=== PATIENT | female | born 1965 | race Caucasian/White ===

== ENCOUNTER 2017-01-10 16:29 | Emergency (ER) | payer BC ==
[2017-01-10 16:49] VITALS: BP 126/79
[2017-01-10] MEDS ORDERED: Cephalexin CAP* 500 MG PO ONE (17:15)
--- NOTE | 2017-01-10 17:23 | UC ---
Complaint Female HPI - HPI Summary HPI Summary: 51 yo female with dysuria/urgency/frequency x 2 hours no f/c no back pain no n/v/d no vag d/c or itch - History Of Current Complaint Chief Complaint: UCGU Stated Complaint: URINARY Time Seen by Provider: 01/10/17 17:10 Hx Obtained From: Patient Hx Last Menstrual Period: 12/13/16 Onset/Duration: Sudden Onset, Lasting Days Timing: Intermittent, Lasting Minutes Severity Initially: Moderate Severity Currently: None Pain Intensity: 0 - pain with voiding Pain Scale Used: 0-10 Numeric Character: Burning Associated Signs And Symptoms: Positive: Negative - Allergies/Home Medications Allergies/Adverse Reactions: Allergies Allergy/AdvReac Type Severity Reaction Status Date / Time Cortisone Allergy Intermediate Hives Verified 01/10/17 16:49 Sulfa Drugs Allergy Intermediate Swelling Verified 01/10/17 16:49 Iodine Allergy Mild Hives Verified 01/10/17 16:49 Meperidine [From Demerol HCl] Allergy Unknown Unknown Verified 01/10/17 16:49 Reaction Details novacaine Allergy Unknown Swelling Uncoded 01/10/17 16:49 Home Medications: Home Medications Magnesium Oxide TAB* [MagOx 400 TAB*] 180 mg PO DAILY 01/10/17 [History Confirmed 01/10/17] Vari-Gone DAILY 01/10/17 [History] PMH/Surg Hx/FS Hx/Imm Hx Previously Healthy: Yes - Surgical History Surgical History: None - Family History Known Family History: Positive: Hypertension - Social History Alcohol Use: None Substance Use Type: None Smoking Status (MU): Never Smoked Tobacco Have You Smoked in the Last Year: No Review of Systems Constitutional: Negative Skin: Negative Eyes: Negative ENT: Negative Respiratory: Negative Cardiovascular: Negative Gastrointestinal: Negative Genitourinary: Dysuria, Frequency, Urgency Motor: Negative Neurovascular: Negative Musculoskeletal: Negative Neurological: Negative Psychological: Negative All Other Systems Reviewed And Are Negative: Yes Physical Exam Triage Information Reviewed: Yes Appearance: Well-Appearing, No Pain Distress, Well-Nourished Vital Signs: Initial Vital Signs Temp 98.9 F 01/10/17 16:45 Pulse 99 01/10/17 16:45 Resp 16 01/10/17 16:45 BP 126/79 01/10/17 16:45 Pulse Ox 100 01/10/17 16:45 Vital Signs Reviewed: Yes Eyes: Positive: Conjunctiva Clear ENT: Positive: Hearing grossly normal. Negative: Pharyngeal erythema, Nasal congestion, Nasal drainage, TMs normal, Trismus, Muffled/hoarse voice Neck exam: Normal Neck: Positive: Supple Respiratory: Positive: Lungs clear, Normal breath sounds, No respiratory distress Cardiovascular: Positive: RRR, No Murmur Abdomen Description: Positive: Nontender, No Organomegaly, Soft. Negative: CVA Tenderness (R), CVA Tenderness (L) Bowel Sounds: Positive: Present Musculoskeletal: Positive: ROM Intact, No Edema Neurological: Positive: Alert Psychological Exam: Normal Skin Exam: Normal Complaint Female Dx - Differential Dx/Diagnosis Provider Diagnoses: acute cystitis Discharge - Discharge Plan Condition: Stable Disposition: HOME Prescriptions: Cephalexin CAP* [Keflex CAP*] 500 mg PO BID #10 cap Patient Education Materials: Urinary Tract Infection in Women (ED) Referrals: Silvia Haywood MD [Primary Care Provider] - Additional Instructions: recheck if not better in 2 days take another dose of antibiotic tonight before bed
== END 2017-01-10 17:30 | disposition home or self-care (01) ==
LOC: UCCORT 16:29
DX: N30.00 Acute cystitis without hematuria (principal); Z88.4 Allergy status to anesthetic agent; Z88.5 Allergy status to narcotic agent; Z88.2 Allergy status to sulfonamides; Z88.8 Allergy status to other drugs, medicaments and biological substances
CPT/HCPCS: 81003; 87077; 87086; 87186; 99212; A9270-GY; G0463

== ENCOUNTER 2021-06-08 12:45 | Inpatient (IN) ==
[2021-06-08] MEDS ORDERED: Lactated Ringers 1000 ml BAG 1,000 ML IV ONE ×2 (13:11→15:24)
[2021-06-08 14:20] LABS: Venous Bicarbonate HCO3 29.9 mmol/L (24-28)
[2021-06-08 14:21] LABS: ABS Lymphocytes 0.3 10^3/ul (1.0-4.8); ABS Monocytes 0.1 10^3/ul (0-0.8); ABS Neutrophils 1.4 10^3/ul (1.5-7.7); Hematocrit 41 % (35-47); Hemoglobin 13.8 g/dL (12.0-16.0); Mean Corpuscular HGB Conc 34 g/dL (31-36); Mean Corpuscular Hemoglobin 29 pg (27-31); Mean Corpuscular Volume 86 fL (80-97); Mean Platelet Volume 9.7 fL (7.4-10.4); Platelet Count 113 10^3/uL (150-450); Red Cell Distribution Width 13 % (10-15); White Blood Count 1.8 10^3/uL (3.5-10.8)
[2021-06-08 14:31] LABS: Activated Partial Thrombo Time 30.7 seconds (26.0-38.0); INR 1.22 (0.86-1.15)
[2021-06-08 14:40] LABS: Troponin I 0.01 ng/mL (<0.03)
[2021-06-08 15:24] LABS: Potassium 3.5 mmol/L (3.5-5.0)
[2021-06-08 15:42] LABS: Albumin/Globulin Ratio 1.3 (1-3); Globulin 3.2 g/dL (2-4); Total Bilirubin 0.4 mg/dL (0.2-1.0); Total Protein 7.2 g/dL (6.4-8.9); eGFR CKD-EPI 106.4 (>60)
[2021-06-08 15:43] LABS: C Reactive Protein 81.98 mg/L (<8.01)
[2021-06-08 15:44] LABS: Calcium 9.1 mg/dL (8.6-10.3)
[2021-06-08] MEDS ORDERED: CASIRIVI/IMDEVI-MAB 600-600 MG 10 ML in NS 0.9% 100 ml BAG 100 ML IV ONE (15:45)
[2021-06-08] MEDS ORDERED: NS 0.9% 50 ML 50 ML IV ONE (16:17)
[2021-06-08] MEDS ORDERED: NS 0.9% 250 ml 250 ML ONE (17:58)
[2021-06-08] MEDS ORDERED: Remdesivir 100 mg Vial 200 MG in NS 0.9% 250 ml 210 ML IV ONE (18:00)
[2021-06-08] MEDS: Enoxaparin 40 MG/0.4 ML SYR SUBCUT SCH (18:08)
[2021-06-08 20:57] LABS: INR 1.27 (0.86-1.15)
[2021-06-09 06:06] LABS: Hematocrit 39 % (35-47); Hemoglobin 13.3 g/dL (12.0-16.0); Mean Corpuscular HGB Conc 34 g/dL (31-36); Mean Corpuscular Hemoglobin 29 pg (27-31); Mean Corpuscular Volume 86 fL (80-97); Mean Platelet Volume 9.5 fL (7.4-10.4); Platelet Count 121 10^3/uL (150-450); Red Blood Count 4.56 10^6 /uL (3.70-4.87); Red Cell Distribution Width 14 % (10-15); White Blood Count 1.3 10^3/uL (3.5-10.8)
[2021-06-09 06:11] LABS: ABS Lymphocytes 0.3 10^3/ul (1.0-4.8); ABS Monocytes 0.1 10^3/ul (0-0.8); ABS Neutrophils 0.8 10^3/ul (1.5-7.7); INR 1.25 (0.86-1.15); Lymphocyte % 26.7 %; Nucleated Red Blood Cells % 0.1
[2021-06-09 06:30] LABS: Albumin 3.6 g/dL (3.2-5.2); Albumin/Globulin Ratio 1.1 (1-3); Calcium 8.9 mg/dL (8.6-10.3); Globulin 3.2 g/dL (2-4); Total Bilirubin 0.4 mg/dL (0.2-1.0); Total Protein 6.8 g/dL (6.4-8.9); eGFR CKD-EPI 108.1 (>60)
[2021-06-09] MEDS: Enoxaparin 40 MG/0.4 ML SYR SUBCUT SCH (18:33)
[2021-06-09] MEDS ORDERED: Remdesivir 100 mg Vial 100 MG in NS 0.9% 250 ml 230 ML IV SCH (21:00)
[2021-06-10 04:19] VITALS: BP 92/56
[2021-06-10 05:46] LABS: INR 1.19 (0.86-1.15)
[2021-06-10 05:49] LABS: ABS Lymphocytes 0.4 10^3/ul (1.0-4.8); ABS Monocytes 0.3 10^3/ul (0-0.8); ABS Neutrophils 2.1 10^3/ul (1.5-7.7); Hematocrit 40 % (35-47); Hemoglobin 13.4 g/dL (12.0-16.0); Lymphocyte % 15.5 %; Mean Corpuscular HGB Conc 34 g/dL (31-36); Mean Corpuscular Hemoglobin 29 pg (27-31); Mean Corpuscular Volume 87 fL (80-97); Mean Platelet Volume 9.4 fL (7.4-10.4); Nucleated Red Blood Cells % 0.1; Platelet Count 162 10^3/uL (150-450); Red Blood Count 4.59 10^6 /uL (3.70-4.87); Red Cell Distribution Width 14 % (10-15); White Blood Count 2.9 10^3/uL (3.5-10.8)
[2021-06-10 06:00] LABS: Albumin 3.5 g/dL (3.2-5.2); Albumin/Globulin Ratio 1.1 (1-3); Calcium 9.2 mg/dL (8.6-10.3); Globulin 3.1 g/dL (2-4); Potassium 3.9 mmol/L (3.5-5.0); Total Bilirubin 0.4 mg/dL (0.2-1.0); Total Protein 6.6 g/dL (6.4-8.9); eGFR CKD-EPI 109.1 (>60)
[2021-06-10 15:44] LABS: Ferritin 942.3 ng/mL (11-307)
== END 2021-06-10 14:00 | disposition home or self-care (01) | DRG 137 ==
LOC: ED 12:45 → EDHOLD 17:31 → SUATTDRO 17:31 → MED 22:11
PROVIDERS: ADMIT Internal Medicine; ATTEND Internal Medicine